=== PATIENT | male | born 1995 | race Asian ===

== ENCOUNTER 2019-01-22 13:02 | Emergency (ER) | payer SELFPAY ==
[~2019-01-22] VITALS: Ht 160 cm; Wt 64.0 kg
[2019-01-22 13:12] VITALS: BP 130/79
[2019-01-22] MEDS ORDERED: DIPH,PERTUSS(ACELL),TET VAC/PF 0.5 ML IM-VACC ONE ×2 (13:30→13:36)
--- NOTE | 2019-01-22 13:38 | NUR ---
PT REFUSED TETANUS SHOT. PT BELIEVES HE HAS HAD ONE IN THE LAST FEW YEARS. PT EDUCATED ON TETANUS SHOT AND CONT TO REFUSE ONE.
== END 2019-01-22 14:22 | disposition home or self-care (01) ==
LOC: ED 14:16
DX: S61.211A Laceration without foreign body of left index finger without damage to nail, initial encounter (principal); W26.8XXA Contact with other sharp object(s), not elsewhere classified, initial encounter; Y93.89 Activity, other specified; Y92.009 Unspecified place in unspecified non-institutional (private) residence as the place of occurrence of the external cause; Y99.8 Other external cause status
CPT/HCPCS: 12001; 99283